=== PATIENT | female | born 1940 | race Native Hawaiian/Other Pacific Islander ===

== ENCOUNTER 2017-05-07 07:07 | Day surgery (SDC) | payer MEDICARE ==
[2017-05-07 07:36] VITALS: BMI 22.8
[2017-05-07 08:00] VITALS: O2SAT 100
[2017-05-07] MEDS ORDERED: Lactated Ringer's 500 ML IV ONE ×2 (08:53)
[2017-05-07] MEDS ORDERED: Propofol 10 mg/ml Inj (20 ML) ONE (08:58)
[2017-05-07] MEDS ORDERED: Lidocaine Hydrochloride 5 ML INJ ONE (08:58)
[2017-05-07] MEDS ORDERED: Etomidate 20 mg/10ml Inj IV ONE (08:58)
--- NOTE | 2017-05-07 08:58 | CP.SDSHP ---
Same Day Surgery H & P - History Proposed Procedure: Colonoscopy Pre-Op Diagnosis: History of polyps - Previous Medical/Surgical History Cardiac: ASHD/CAD Pulmonary: Asthma Endocrine/Metabolic: Diabetes Previous Surgical History: Cardiac catheterization with stents - Allergies Allergies: Allergies bicoprofen Adverse Reaction (Uncoded 05/07/17 07:35) DIZZINESS - Current Medications Current Medications: See reconciliation sheet - Physical Exam General Appearance: WD WN female in NAD Vital Signs: Vital Signs 05/07/17 07:43 Temperature 96.8 F L Pulse Rate 97 H Respiratory 18 Rate Blood Pressure 118/74 O2 Sat by Pulse 100 Oximetry Mental Status: Alert & Oriented x3 Neuro: WNL Heart: WNL Lungs: WNL GI: WNL - {Optional Preform as Required} Abdomen: WNL - Impression Impression: History of polyps Pt. Evaluated Today:Candidate for Anesthesia & Procedure: Yes - Date & Time Date: 05/07/17 Time: 08:58 Short Stay Discharge - Short Stay Discharge Admitting Diagnosis/Reason for Visit: PERSONAL HISTORY OF COLONIC POLYPS Disposition: HOME/ ROUTINE
[2017-05-07 10:02] VITALS: RESP 14
[2017-05-07 11:09] VITALS: BP 138/76; PULSE 80; TEMP 97.9
== END 2017-05-07 11:00 | disposition home or self-care (01) ==
LOC: C.ENDO 07:07
PROVIDERS: ATTEND Internal Medicine Gastroenterology
DX: K52.9 Noninfective gastroenteritis and colitis, unspecified (principal); K64.8 Other hemorrhoids
CPT/HCPCS: 45380; 82948; 88305; J2704; J7120

== ENCOUNTER 2017-07-06 06:38 | Day surgery (SDC) | payer MEDICARE ==
[2017-07-06] MEDS ORDERED: Midazolam 2 MG/2 ML VIAL ONE (10:52)
[2017-07-06] MEDS ORDERED: Propofol 10 mg/ml Inj (20 ML) ONE (10:52)
[2017-07-06] MEDS ORDERED: Lactated Ringer's 500 ML IV SCH (11:00)
[2017-07-06] MEDS ORDERED: Phenylephrine 10 mg/ml Inj ONE (11:29)
[2017-07-06] MEDS ORDERED: Etomidate 20 mg/10ml Inj IV ONE (11:29)
[2017-07-06 12:00] VITALS: TEMP 97.8
[2017-07-06 13:37] VITALS: O2SAT 98
[2017-07-06 13:40] VITALS: BP 145/62; PULSE 63; RESP 18
== END 2017-07-06 13:37 | disposition home or self-care (01) ==
LOC: C.ENDO 06:38
PROVIDERS: ATTEND Internal Medicine
DX: K86.2 Cyst of pancreas (principal); K20.8 Other esophagitis; K44.9 Diaphragmatic hernia without obstruction or gangrene; K29.60 Other gastritis without bleeding; K29.50 Unspecified chronic gastritis without bleeding; K80.20 Calculus of gallbladder without cholecystitis without obstruction; I25.10 Atherosclerotic heart disease of native coronary artery without angina pectoris; Z95.5 Presence of coronary angioplasty implant and graft; I10 Essential (primary) hypertension; E11.9 Type 2 diabetes mellitus without complications; I48.91 Unspecified atrial fibrillation; J45.909 Unspecified asthma, uncomplicated; D64.9 Anemia, unspecified; M10.9 Gout, unspecified; Z79.82 Long term (current) use of aspirin; Z79.4 Long term (current) use of insulin; Z79.899 Other long term (current) drug therapy
CPT/HCPCS: 43239; 43242; 82150; 82948; 88104; 88305; J0696; J2250; J2370; J2704; J7120

== ENCOUNTER → 2017-11-20 | Day surgery (SDC) | payer MEDICARE, OTHER ==
[~2017-11-20] MED LIST: Lidocaine 2% Inj (20ml) ONE; Midazolam 2 MG/2 ML VIAL ONE; Propofol 10 mg/ml Inj (20 ML) ONE; ePHEDrine 50 mg/ml Inj ONE
--- NOTE | 2017-11-20 09:57 | CP.SDSHP ---
Same Day Surgery H & P - History Proposed Procedure: CT guided left lung nodule biopsy Pre-Op Diagnosis: Left lung nodule - Allergies Allergies: Allergies hydrocodone [From Vicoprofen] Allergy (Unknown, Verified 07/06/17 07:24) DIZZINESS ibuprofen [From Vicoprofen] Allergy (Unknown, Verified 07/06/17 07:24) DIZZINESS - Physical Exam Mental Status: Alert & Oriented x3 Neuro: WNL Heart: WNL Lungs: WNL - Impression Impression: Pt with a irregular marginated left upper lobe lung nodule. Plan CT guided core biopsy. Informed consent obtained and risk of bleeding and pneumothorax and possible chest tube discussed. Pt. Evaluated Today:Candidate for Anesthesia & Procedure: Yes (ASA 2 Malampati 2) Short Stay Discharge - Short Stay Discharge Admitting Diagnosis/Reason for Visit: L UPPER LOBE LUNG NODULE Disposition: HOME/ ROUTINE
--- NOTE | 2017-11-20 10:27 | PCM.SURG1 ---
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
--- NOTE | 2017-11-20 16:05 | RAD ---
PROCEDURE: CHEST RADIOGRAPH, 1 VIEW HISTORY: S/P LEFT LUNG BIOPSY COMPARISON: 11/20/2017 at 12:08 p.m. FINDINGS: LUNGS: No consolidation PLEURA: Prior left pneumothorax noted. Left pleural reflection over the left mid to upper lung zone approximately 8 to 10 mm from the ribs is noted; previous 2 to 4 mm. No midline shift CARDIOVASCULAR: Normal. OSSEOUS STRUCTURES: Thoracic spondylosis. Bilateral shoulder arthrosis VISUALIZED UPPER ABDOMEN: Normal. OTHER FINDINGS: None. IMPRESSION: Prior left pneumothorax noted. Left pleural reflection over the left mid to upper lung zone approximately 8 to 10 mm from the ribs is noted; previous 2 to 4 mm. No midline shift Dr Dietrich aware.
--- NOTE | 2017-11-21 12:02 | CT ---
PROCEDURE: Date of procedure: 11/20/2017 Procedure: 1. CT-guided lung mass biopsy, CPT [address] Guidance for biopsy, [address] Medications: The patient was sedated by anesthesiologist along with physiologic monitoring. HISTORY: Left upper lobe lung nodule TECHNIQUE: Following informed consent and procedure time out, the patient was placed prone on the CT table and noncontrast CT scan was performed. Noncontrast CT scan confirmed the presence of a 1.7 cm left upper lobe lung nodule. A skin localizer was placed on the patient's LEFT chest and a repeat CT scan was performed. The skin was marked, prepped, and draped in the usual sterile fashion. After the skin was anesthetized with lidocaine and the patient sedated by the anesthesiologist, a 20 gauge core needle was advanced percutaneously under direct CT guidance into the nodule. Upon confirmation of needle position, two 20-gauge core specimens were obtained and sent for routine pathology. The needle was removed and a xeroform dressing was applied. A post biopsy CT scan showed no pneumothorax. IMPRESSION: CT guided core biopsy left lung nodule.
--- NOTE | 2017-11-21 12:04 | RAD ---
PROCEDURE: CHEST RADIOGRAPH, 1 VIEW HISTORY: Status post left lung nodule bx COMPARISON: None available. FINDINGS: LUNGS: Right lungs is clear. Nodule in the left mid upper lobe identified. This is better seen on the recent CT scan. PLEURA: There is a small pneumothorax present, less than 10 percent. CARDIOVASCULAR: Normal. OSSEOUS STRUCTURES: No significant abnormalities. VISUALIZED UPPER ABDOMEN: Normal. OTHER FINDINGS: None. IMPRESSION: Less than 10 pneumothorax following left lung nodule biopsy.
== END | disposition home or self-care (01) ==
LOC: C.SPRAD 08:41
PROVIDERS: ATTEND Radiology Vascular & Interventional Radiology
DX: R91.1 Solitary pulmonary nodule (principal)
CPT/HCPCS: 32405; 71045; 88305; J2250; J2704